=== PATIENT | female | born 1985 | race African-American/Black ===

== ENCOUNTER 2018-06-26 09:20 | Emergency (ER) | payer OTHER ==
[2018-06-26 10:34] LABS: Pregnancy Test - Urine (BHCG) POSITIVE (Negative); Pregu Control Background? CLEAR/WHITE (CLR/WHITE); Pregu Control Bar Appear? YES (CONTROL BAR); Specific Gravity 1.028 (1.002-1.036)
[2018-06-26 10:55] LABS: Bilirubin Negative (Negative); Blood, Urine Negative (Negative); Glucose, Urine (Dipstick) Negative (Negative); Leukocyte Negative (Negative); Nitrite Negative (Negative); Protein, Urine (Dipstick) Negative (Neg-Trace); Specific Gravity, Urine 1.025 (1.005-1.030); Urobilinogen 0.2 mg/dL (0.2-1.0)
[2018-06-26 10:58] LABS: Clarity CLEAR (Clear)
== END 2018-06-26 11:30 | disposition home or self-care (01) ==
LOC: ERS 09:20
DX: O20.9 Hemorrhage in early pregnancy, unspecified (principal); G43.909 Migraine, unspecified, not intractable, without status migrainosus; F41.9 Anxiety disorder, unspecified; F32.9 Major depressive disorder, single episode, unspecified
CPT/HCPCS: 81003; 81025

== ENCOUNTER 2018-12-15 23:51 | Inpatient (IN) | payer OTHER ==
[2018-12-16] MEDS ORDERED: Magnesium Sulfate 20 gm/500 ml 20 GM/500 ML BAG ONE (00:13)
[2018-12-16] MEDS ORDERED: Bicitra 30 ML UDCUP ONE (00:13)
[2018-12-16 00:27] VITALS: BMI 34.7
[2018-12-16] MEDS ORDERED: Bicitra 30 ML UDCUP PO SCH (00:30)
[2018-12-16] MEDS ORDERED: Calcium Gluc 4.6 MEQ/10 ML (100 MG/ML) SLOW IVP PRN (00:30)
[2018-12-16] MEDS ORDERED: Ondansetron PF 4 MG/2 ML Vial IVP PRN ×2 (00:30→01:35)
[2018-12-16] MEDS ORDERED: Butorphanol Tartrate 1 MG/ML VIAL SLOW IVP PRN (00:30)
[2018-12-16] MEDS ORDERED: CEFAZOLIN 2 GM in Premix Bag 1 BAG IVPB SCH (00:30)
[2018-12-16] MEDS ORDERED: Lactated Ringer's 1,000 ML IV SCH ×2 (00:30)
[2018-12-16] MEDS ORDERED: Magnesium Sulfate 20 gm/500 ml 20 GM/500 ML BAG IVPB SCH (00:30)
[2018-12-16] MEDS ORDERED: Promethazine HCl 25 MG/ML VIAL IM PRN ×2 (00:30→01:35)
[2018-12-16] MEDS ORDERED: Magnesium Sulfate 20 GM/WATER 500 ML BAG IVPB SCH (00:30)
[2018-12-16] MEDS ORDERED: Ondansetron PF 4 MG/2 ML Vial ONE ×2 (00:43→13:16)
[2018-12-16] MEDS ORDERED: MORPHINE 5 MG/10 ML PF VIAL ONE (00:43)
[2018-12-16] MEDS ORDERED: Dexamethasone 4 mg/ml Vial ONE ×2 (00:43→00:44)
[2018-12-16] MEDS ORDERED: Oxytocin 10 UNITS/ML VIAL ONE (00:44)
[2018-12-16] MEDS ORDERED: diphenhydrAMINE 50 MG/ML VIAL ONE ×2 (00:44→13:16)
[2018-12-16] MEDS ORDERED: PHENYLEPHRINE-NS 100 MCG/ML 10 ML SYRINGE ONE (00:44)
[2018-12-16] MEDS ORDERED: Ketorolac Tromethamine 30 MG/ML VIAL ONE ×2 (00:44→13:16)
[2018-12-16 00:48] LABS: Hemoglobin 9.8 g/dL (12.0-16.0); Mean Corpuscular HGB CONC 33.6 g/dL (32.0-36.0); Mean Corpuscular Hemoglobin 30.3 pg (27.0-31.0); Mean Corpuscular Volume 90.2 fL (78.0-98.0); Mean Platelet Volume 7.9 fL (7.4-10.4); Platelet Count 256 thou/uL (130-400); RBC Distribution Width 11.5 % (11.5-14.5); Red Blood Cell (RBC) Count 3.24 mill/uL (4.20-5.40); White Blood Cell (WBC) Count 10.5 thou/uL (4.8-10.8)
--- NOTE | 2018-12-16 00:52 | HP ---
TIME OF ADMISSION: 9. REASON FOR ADMISSION: Probable rupture of membranes with labor at 31 weeks and 2 days with twins. HISTORY OF PRESENT ILLNESS: Ms. Peralta is a 33-year-old 6, para 5, living 4, previous x1, who presents with rupture of membranes and contractions q. 3 to 5 minutes. She states that she had a sudden gush of fluid, but now cannot stop peeing on herself. She was seen earlier today and was noted to be 190 and -3 and was discharged home on Procardia, Metrogel She sees Dr. Berto Alexander. OB history, antepartum records not available. However, Dr. Alexander's Labor and Delivery H and P from this morning is present, reflects the patient is B positive. RPR negative. Rubella immune. HIV negative. Hepatitis B negative. Group B strep unknown. EDC is 02/14/2019 placing her at 31 weeks and 2 days. She has a history of labor at 28 weeks in this , which she received magnesium and Procardia. Patient also reports that she received corticosteroids. This was at [facility] and those records are not available. PAST MEDICAL HISTORY: Depression. SURGICAL HISTORY: x1 at 33 weeks with preeclampsia and cholecystectomy. ALLERGIES: DENIES. MEDICATIONS: vitamin, progesterone, aspirin, and Procardia. SOCIAL HISTORY: Denies tobacco, alcohol, or drug abuse. FAMILY HISTORY: Noncontributory. REVIEW OF SYSTEMS: Noncontributory. PHYSICAL EXAMINATION: GENERAL: Black female, in distress approximately q.3 minutes. VITAL SIGNS: Temperature 99.1, pulse 105, respirations 18, and blood pressure 132/82. HEENT: Within normal limits. LUNGS: Clear to auscultation bilaterally. HEART: Regular rate and rhythm. ABDOMEN: Has palpable contractions q.3 minutes that are firm. PELVIS: Vulva is without lesions. Vagina, there is fluid that is considered to be likely amniotic fluid on cervical exam of bag is palpated. The cervix was noted to be 3 to 4, complete, 0 station. Bag of water intact. Cephalic presentation. LABORATORY FINDINGS: Bedside ultrasound reveals subjectively decreased fluid around twin A, which is cephalic presentation on the maternal right. Twin B is breech presentation on the maternal left. IMPRESSION: 31 to 32 weeks gestation with active labor, previous , cephalic breech presentation. PLAN: We will admit the patient. Anticipate performing repeat section with Dr. Miller. We will administer magnesium sulfate for neuroprotection and Ancef for antibiotic prophylaxis. SCDs for DVT prophylaxis. Villafana to gravity. We will discuss patient's case with Dr. Velasquez Price, Neonatology specialty development consultant. Job ID: [id number] [facility]
[2018-12-16 01:25] LABS: Syphilis Antibody Nonreactive (Nonreactive); Syphilis Antibody Index 0.06 S/CO (<1.00 Non-Reactive)
[2018-12-16] MEDS ORDERED: Promethazine HCl 25 MG SUPP PR PRN (01:35)
[2018-12-16] MEDS ORDERED: Eucerin (Mineral Oil/Petrolatum,White) 30 gm Jar TOP PRN (01:35)
[2018-12-16] MEDS ORDERED: Meperidine HCl/PF 25 MG/ML VIAL SLOW IVP PRN (01:35)
[2018-12-16] MEDS ORDERED: Naloxone HCl 0.4 mg/ml Vial IVP PRN ×2 (01:35)
[2018-12-16] MEDS ORDERED: L&D-Morphine 4 MG/ML VIAL SLOW IVP PRN (01:35)
[2018-12-16] MEDS ORDERED: Naloxone HCl 0.4 mg/ml Vial IV PRN (01:35)
[2018-12-16] MEDS ORDERED: Ondansetron HCl/PF 4 MG/2 ML Vial IVP PRN (01:35)
[2018-12-16] MEDS ORDERED: diphenhydrAMINE 50 MG/ML VIAL IVP PRN (01:35)
[2018-12-16] MEDS ORDERED: HYDROmorphone 2 MG/ML VIAL SLOW IVP PRN (01:35)
[2018-12-16] MEDS ORDERED: Ketorolac Tromethamine 30 MG/ML VIAL IVP PRN (01:35)
[2018-12-16] MEDS ORDERED: Communication Order-Pharmacy FS SCH (01:45)
[2018-12-16] MEDS ORDERED: Meperidine HCl/PF 25 MG/ML VIAL ONE (01:59)
[2018-12-16] MEDS ORDERED: Morphine 4 MG/ML VIAL SLOW IVP PRN (04:01)
[2018-12-16] MEDS ORDERED: Misoprostol 200 MCG TAB PR PRN (04:09)
[2018-12-16] MEDS ORDERED: NS / Oxytocin 40 units/1000ml 1,000 ML IV SCH (04:09)
[2018-12-16] MEDS ORDERED: Methylergonovine 0.2 MG/ML VIAL IM PRN (04:09)
[2018-12-16] MEDS ORDERED: Bisacodyl 10 MG SUPP PR PRN (04:09)
[2018-12-16] MEDS ORDERED: Meperidine HCl/PF 25 MG/ML VIAL IM PRN (04:09)
[2018-12-16] MEDS ORDERED: Acetaminophen 325 MG TAB PO PRN (04:09)
[2018-12-16] MEDS ORDERED: Lanolin Ointment 7 GM TUBE TOP PRN (04:09)
[2018-12-16] MEDS ORDERED: Methylergonovine 0.2 MG TAB PO PRN (04:09)
[2018-12-16 04:25] LABS: HBSAg Index 0.31 S/CO (0-0.99); Hep B Surf Ag Non-Reactive S/CO (NonReactive)
--- NOTE | 2018-12-16 05:23 | DN ---
DATE OF PROCEDURE: 12/16/2018 RESIDENT SURGEON: Richard Mulligan, PGY-2 ATTENDING SURGEON: Dr. Sagar Montejo PROCEDURE PERFORMED: Repeat low-transverse -section. PREOPERATIVE DIAGNOSES: 1. Term intrauterine twin . 2. Previous -section. 3. Depression. 4. Cephalic/breech presentation of twins. POSTOPERATIVE DIAGNOSES: 1. Term intrauterine twin . 2. Previous -section. 3. Depression. 4. Cephalic/breech presentation of twins. ANESTHESIA: Spinal. INDICATIONS FOR PROCEDURE: This patient is a 33-year-old, G6, para 5, living 4, previous section x1, female at 31 weeks and 2 days, who presented in Labor with twins in cephalic breech presentation. DESCRIPTION OF PROCEDURE: After risks, benefits, and alternatives were explained to the patient, she gave informed consent. Preoperative antibiotics include cefazolin 2 g IV. The patient was taken to the operating room and spinal anesthesia was initiated. She was placed in the supine position with a left tilt and prepped and draped in the usual sterile fashion. A Pfannenstiel incision was made with a scalpel and carried down to the level of the fascia, which was sharply nicked. The fascial cut was extended laterally with curved Sanabria scissors. The inferior and superior edges the of cut fascial edges were elevated with Azael clamps and the underlying rectus muscles were sharply and bluntly dissected free. The recti were divided digitally and retracted manually. The peritoneum was entered bluntly and retracted manually. Vivek O retractor was placed. A low transverse score was made with a scalpel and the uterus was entered in the midline with the scalpel. Clear fluid was seen. Hysterotomy was extended manually. Infant A was noted to be vertex and was easily delivered by fundal pressure. Mouth and nares were bulb suctioned. Cord was clamped and cut and grossly normal male was handed to waiting nurse. Baby B was noted to be in the breech position and was again easily delivered by fundal pressure. Mouth and nares were bulb suctioned. Cord was clamped and cut and grossly normal male infant was handed to waiting nurse. Cord blood was obtained for both baby A and B respectively. The placenta was manually extracted to be found intact. There were two 3-vessel cords and they were discarded. The uterus and endometrium was curetted with a dry lap. The uterus was closed with a running locking #1 Monocryl suture. Following this, hemostasis was noted. The abdomen was irrigated with saline and suctioned free of clots and hemostasis was noted. The Vivek O retractor was removed. The fascia was then closed with a running nonlocking 0 Vicryl suture. Subcu tissue was irrigated and bleeders were cauterized with Bovie cautery and hemostasis was noted. The subcu was closed with 2-0 plain gut and then the skin was approximated with a subcuticular running with 3-0 Vicryl suture and pressure dressing was placed. All counts were correct. The patient tolerated the procedure well, and was taken to the recovery room in stable condition. QBL: 525. COMPLICATIONS: None. SPECIMENS: Cord blood for Baby Boy A and Baby Boy B sent to lab for blood type. FINDINGS: Grossly normal male A with Apgars of 6 and 8 born at 0116 hours with a grossly normal three-vessel cord and there was also a grossly normal male B infant with Apgars 6 and 8, born at 0117 hours with again a normal 3-vessel cord and grossly normal placenta was sent for Pathology. DRAINS: Villafana to gravity draining clear urine. Job ID: [id number] [facility]
--- NOTE | 2018-12-16 07:15 | PRG ---
DATE OF SERVICE: 12/16/2018 TIME OF SERVICE: 0700 SUBJECTIVE: Ms. Peralta is now postoperative day 0.5 from repeat for labor last night at 0115. She reports no complaint. Babies are in the NICU, doing well. Hematocrit will be pending for tomorrow. OBJECTIVE: VITAL SIGNS: Temperature is 97.6, respirations 18, blood pressure 118/72, pulse 85. HEENT: Within normal limits. LUNGS: Clear to auscultation bilaterally. HEART: Regular rate and rhythm. ABDOMEN: Soft and nontender. Incision is intact and dry. Normal lochia. EXTREMITIES: Without clubbing, cyanosis, or edema. IMPRESSION: Doing well, status post repeat section for labor with twins at 31 to 32 weeks' gestation. PLAN: Routine post care. Job ID: [id number]
[2018-12-16 07:24] LABS: Hemoglobin 10.2 g/dL (12.0-16.0); Mean Corpuscular HGB CONC 33.4 g/dL (32.0-36.0); Mean Corpuscular Hemoglobin 29.9 pg (27.0-31.0); Mean Corpuscular Volume 89.5 fL (78.0-98.0); Mean Platelet Volume 8.2 fL (7.4-10.4); Platelet Count 281 thou/uL (130-400); RBC Distribution Width 11.5 % (11.5-14.5); White Blood Cell (WBC) Count 14.2 thou/uL (4.8-10.8)
[2018-12-16] MEDS ORDERED: Adacel (T-DAP) 0.5 ML SYRINGE IM ONE (09:00)
[2018-12-16] MEDS: Prenatal Vitamin 1 TAB PO SCH (09:24)
[2018-12-16] MEDS ORDERED: Dexamethasone 20 MG/5 ML VIAL ONE (13:16)
[2018-12-16] MEDS: diphenhydrAMINE 25 MG CAP PO PRN ×2 (16:47→21:06)
[2018-12-16] MEDS: HYDROcodone/Acetaminophen 5/325 mg Tablet PO PRN ×2 (17:19→22:18)
[2018-12-17] MEDS: Simethicone Chewable 80 MG TAB PO PRN ×3 (03:25→19:06)
[2018-12-17] MEDS: Ibuprofen 800 MG TAB PO SCH ×3 (05:27→22:07)
[2018-12-17] MEDS: Prenatal Vitamin 1 TAB PO SCH (09:02)
[2018-12-17] MEDS: HYDROcodone/Acetaminophen 5/325 mg Tablet PO PRN ×2 (09:02→19:05)
[2018-12-17] MEDS: diphenhydrAMINE 25 MG CAP PO PRN (09:05)
[2018-12-18] MEDS ORDERED: Ondansetron ODT 4 MG TAB PO PRN (02:41)
[2018-12-18] MEDS: Simethicone Chewable 80 MG TAB PO PRN ×2 (03:13→09:50)
[2018-12-18] MEDS: HYDROcodone/Acetaminophen 5/325 mg Tablet PO PRN ×3 (03:50→14:00)
[2018-12-18] MEDS: Ibuprofen 800 MG TAB PO SCH ×2 (05:59→14:00)
[2018-12-18 08:13] VITALS: BP 104/61; TEMP 98.3
[2018-12-18] MEDS: Prenatal Vitamin 1 TAB PO SCH (09:50)
== END 2018-12-18 18:00 | disposition home or self-care (01) | DRG 788 ==
LOC: L&D/OP 23:51 → L&D 12-16 00:36 → 3SW 12-16 04:29
PROVIDERS: ADMIT Obstetrics & Gynecology; ATTEND Obstetrics & Gynecology
PROC: 10D00Z1 Extraction of Products of Conception, Low, Open Approach (ICD-10-PCS; principal; 2018-12-16)
DX: O60.14X1 Preterm labor third trimester with preterm delivery third trimester, fetus 1 (principal); O34.219 Maternal care for unspecified type scar from previous cesarean delivery; O60.14X2 Preterm labor third trimester with preterm delivery third trimester, fetus 2; O99.344 Other mental disorders complicating childbirth; F32.9 Major depressive disorder, single episode, unspecified; O32.1XX0 Maternal care for breech presentation, not applicable or unspecified; O30.003 Twin pregnancy, unspecified number of placenta and unspecified number of amniotic sacs, third trimester; Z37.2 Twins, both liveborn; Z3A.31 31 weeks gestation of pregnancy
CPT/HCPCS: 36415; 51702; 82731; 84112; 85027; 86780; 86850; 86900; 86901; 87340; 87480; 87510; 87660; 88307; 99285; G0378; J1100; J1200; J1885; J2175; J2270; J2405; J2590; J3475; Q0162; Q0163